=== PATIENT | female | born 1975 | race Caucasian/White ===

== ENCOUNTER 2021-09-29 12:44 | Emergency (ER) | payer BC, SELFPAY ==
[2021-09-29 12:57] VITALS: BP 150/89; PULSE 96; RESP 18; TEMP 37.4; O2SAT 97; BMI 41.6
--- NOTE | 2021-09-29 13:00 | ECG_ITS ---
Test Reason : L ARM TINGLILNG Blood Pressure : / mmHG Vent. Rate : 088 BPM Atrial Rate : 088 BPM P-R Int : 142 ms QRS Dur : 080 ms QT Int : 356 ms P-R-T Axes : 057 049 027 degrees QTc Int : 430 ms Normal sinus rhythm Normal ECG No previous ECGs available Referred By: Generic ED Physician Electronically Signed By:FAIZA FLORENCE
== END 2021-09-29 15:20 | disposition left against medical advice (07) ==
LOC: HO.ED 15:14
PROVIDERS: Emergency Provider Emergency Medicine
DX: R42 Dizziness and giddiness (principal); R20.2 Paresthesia of skin
CPT/HCPCS: 93005; 99283